=== PATIENT | female | born 1945 | race Two or more races ===

== ENCOUNTER 2019-08-31 14:53 | Emergency (ER) | payer MEDICARE ==
[~2019-08-31] VITALS: Ht 157.5 cm; Wt 60.0 kg
[2019-08-31] MEDS: NITROFURANTOIN 100MG M/M CAPSULE PO SCH ×2 (00:01→19:05)
[2019-08-31] MEDS ORDERED: PROT40 PO (15:07)
[2019-08-31] MEDS ORDERED: LEVO75TA7 PO (15:07)
[2019-08-31] MEDS ORDERED: FOLI-43 PO (15:07)
[2019-08-31] MEDS ORDERED: DIVA250T4 PO (15:07)
[2019-08-31 16:28] LABS: BASOPHILS % 0.6 % (0.0-2.0); EOSINOPHILS % 1.1 % (0.0-5.0); HEMATOCRIT. 46.8 % (36.0-48.0); HEMOGLOBIN. 15.1 g/dL (12.0-16.0); LYMPHOCYTES % 27.1 % (20.0-50.0); MEAN CORPUSCULAR HEMOGLOBIN 26.5 pg (28.0-32.0); MEAN CORPUSCULAR VOLUME 81.7 fL (81.0-99.0); MEAN PLATELET VOLUME 9.3 fl (7.4-10.4); MONOCYTES % 8.4 % (2.0-8.0); NEUTROPHILS % 62.8 % (40.0-76.0); PLATELET 144 x1000/uL (130-400); RED BLOOD CELL COUNT 5.72 mill/uL (4.2-5.4); RED CELL DISTRIBUTION WIDTH 20.6 % (11.6-14.6)
[2019-08-31 16:32] LABS: CHLORIDE 108 mEq/L (98-107)
[2019-08-31 16:36] LABS: ETHANOL BLOOD < 10 mg/dL
[2019-08-31] MEDS ORDERED: LORAZEPAM 1MG TABLET PO ONE (16:45)
[2019-08-31] MEDS ORDERED: OLANZAPINE 5MG TABLET ODT PO ONE (16:45)
[2019-08-31 16:47] LABS: CLARITY URINE CLOUDY (CLEAR); COLOR URINE DK YELLOW (YELLOW); KETONES URINE TRACE (NEGATIVE); LEUKOCYTE ESTERASE URINE 1+ (NEGATIVE); NITRITE URINE NEGATIVE (NEGATIVE); OCCULT BLOOD URINE TRACE (NEGATIVE); PH URINE 6.5 (4.5-8.0); PROTEIN URINE 3+ (NEGATIVE); SPECIFIC GRAVITY URINE 1.026 (1.005-1.030)
[2019-08-31] MEDS ORDERED: POTASSIUM CHLORIDE 20MEQ TABLET SR PO ONE (17:00)
[2019-08-31 17:23] LABS: *AMPHETAMINES SCREEN URINE NEGATIVE (NEGATIVE); *BARBITURATES SCREEN URINE NEGATIVE (NEGATIVE); *BENZODIAZEPINES SCREEN URINE NEGATIVE (NEGATIVE); *COCAINE SCREEN URINE NEGATIVE (NEGATIVE); METHADONE URINE SCREEN NEGATIVE (NEGATIVE)
[2019-08-31 17:24] LABS: CANNABINOID URINE SCREEN NEGATIVE (NEGATIVE); OPIATES URINE SCREEN NEGATIVE (NEGATIVE); PHENCYCLIDINE URINE SCREEN NEGATIVE (NEGATIVE)
[2019-08-31] MEDS ORDERED: NITROFURANTOIN 100MG M/M CAPSULE PO ONE (17:30)
[2019-08-31] MEDS ORDERED: LORAZEPAM 2MG/ML CPJ IM ONE (18:30)
[2019-08-31] MEDS ORDERED: DIPHENHYDRAMINE 50MG/ML VIAL IM ONE (18:30)
[2019-08-31] MEDS ORDERED: SODIUM CHLORIDE 0.9% 500 ML IV ONE (20:53)
[2019-09-01] MEDS: NITROFURANTOIN 100MG M/M CAPSULE PO SCH (08:28)
[2019-09-01 13:30] VITALS: BP 159/94
== END 2019-09-01 13:42 | disposition home or self-care (01) ==
LOC: ER 14:53
DX: F20.9 Schizophrenia, unspecified (principal); I10 Essential (primary) hypertension; N39.0 Urinary tract infection, site not specified; D64.9 Anemia, unspecified; J44.9 Chronic obstructive pulmonary disease, unspecified; F32.9 Major depressive disorder, single episode, unspecified; K21.9 Gastro-esophageal reflux disease without esophagitis; Z95.0 Presence of cardiac pacemaker; Z79.899 Other long term (current) drug therapy
CPT/HCPCS: 36415; 80053; 80305; 80307; 80320; 80329; 81003; 85025; 96372; 99283; J1200; J2060; J7040; G0480

== ENCOUNTER 2019-09-29 12:46 | Inpatient (IN) | payer MEDICARE, MEDICAID ==
[~2019-09-29] VITALS: Ht 157.5 cm; Wt 49.9 kg
[~2019-09-29 12:46] MED LIST: DIVA250T4 PO; FOLI-43 PO; LEVO75TA7 PO; PROT40 PO
[2019-09-29 14:32] LABS: BASOPHILS % 0.3 % (0.0-2.0); EOSINOPHILS % 0.2 % (0.0-5.0); HEMATOCRIT. 24.1 % (36.0-48.0); HEMOGLOBIN. 7.7 g/dL (12.0-16.0); LYMPHOCYTES % 21.9 % (20.0-50.0); MEAN CORPUSCULAR HEMOGLOBIN 25.3 pg (28.0-32.0); MEAN CORPUSCULAR VOLUME 79.5 fL (81.0-99.0); MEAN PLATELET VOLUME 7.9 fl (7.4-10.4); MONOCYTES % 8.8 % (2.0-8.0); NEUTROPHILS % 68.8 % (40.0-76.0); PLATELET 465 x1000/uL (130-400); RED BLOOD CELL COUNT 3.03 mill/uL (4.2-5.4)
[2019-09-29 14:36] LABS: CHLORIDE 100 mEq/L (98-107)
[2019-09-29 14:39] LABS: INR 1.3
[2019-09-29] MEDS ORDERED: LEVOFLOXACIN 500MG PREMIX 100 ML IV ONE (14:45)
[2019-09-29] MEDS ORDERED: SODIUM CHLORIDE 0.9% 500 ML IV ONE (14:47)
[2019-09-29] MEDS ORDERED: POTASSIUM CHLORIDE 20MEQ TABLET SR PO ONE (15:00)
[2019-09-29] MEDS ORDERED: PANTOPRAZOLE SODIUM 40 MG/VIAL IV ONE (15:45)
[2019-09-29 17:11] LABS: CLARITY URINE TURBID (CLEAR); COLOR URINE DARK YELLOW (YELLOW); KETONES URINE 1+ (NEGATIVE); LEUKOCYTE ESTERASE URINE 3+ (NEGATIVE); NITRITE URINE NEGATIVE (NEGATIVE); OCCULT BLOOD URINE 2+ (NEGATIVE); PH URINE 5.5 (4.5-8.0); PROTEIN URINE 2+ (NEGATIVE); SPECIFIC GRAVITY URINE 1.024 (1.005-1.030)
[2019-09-29 21:05] VITALS: BP 92/46
[2019-09-29] MEDS ORDERED: LORAZEPAM 2MG/ML CPJ IV PRN (23:45)
[2019-09-30] VITALS: BP 91/56
[2019-09-30] MEDS ORDERED: DEXT 5%/0.45% NACL 1000ML 1,000 ML IV SCH
[2019-09-30 04:34] VITALS: BP 104/59
[2019-09-30 04:34] LABS: EOSINOPHILS % 0.3 % (0.0-5.0); HEMATOCRIT. 22.6 % (36.0-48.0); HEMOGLOBIN. 7.1 g/dL (12.0-16.0); MEAN CORPUSCULAR HEMOGLOBIN 25.1 pg (28.0-32.0); MEAN CORPUSCULAR VOLUME 79.5 fL (81.0-99.0); MEAN PLATELET VOLUME 7.8 fl (7.4-10.4); PLATELET 412 x1000/uL (130-400); RED BLOOD CELL COUNT 2.84 mill/uL (4.2-5.4); RED CELL DISTRIBUTION WIDTH 21.2 % (11.6-14.6)
[2019-09-30 04:40] LABS: CHLORIDE 104 mEq/L (98-107)
[2019-09-30 04:48] LABS: BASOPHILS % 0.7 % (0.0-2.0); LYMPHOCYTES % 22.6 % (20.0-50.0); MONOCYTES % 11.7 % (2.0-8.0); NEUTROPHILS % 64.7 % (40.0-76.0)
[2019-09-30 04:50] LABS: T4 FREE 1.77 ng/dL (0.76-1.46)
[2019-09-30 08:00] VITALS: BP 99/76
[2019-09-30] MEDS ORDERED: SODIUM CHLORIDE 0.9% 1,000 ML IV ONE (09:00)
[2019-09-30] MEDS ORDERED: PANTOPRAZOLE SODIUM 40 MG/VIAL IV SCH (09:00)
[2019-09-30] MEDS ORDERED: HALOPERIDOL LACTATE 5MG/ML VIAL IM PRN ×2 (09:00→19:00)
[2019-09-30] MEDS: DIVALPROEX SODIUM 250MG DR TABLET PO SCH ×2 (09:38→16:08)
[2019-09-30] MEDS: FOLIC ACID 1MG TABLET PO SCH (09:38)
[2019-09-30] MEDS: DEXT 5%/0.9% NACL 1,000 ML IV SCH ×2 (10:15→21:03)
[2019-09-30 12:00] VITALS: BP 95/62
[2019-09-30] MEDS ORDERED: SODIUM CHLORIDE 0.9% 1,000 ML IV SCH (13:00)
[2019-09-30] MEDS ORDERED: POTASSIUM CHLORIDE 20MEQ TABLET SR PO NR ×2 (13:30→19:00)
[2019-09-30 16:00] VITALS: BP 94/62
[2019-09-30] MEDS ORDERED: LEVOFLOXACIN 500MG PREMIX 100 ML IV SCH (16:00)
[2019-09-30] MEDS ORDERED: SORBITOL 70% SOLN 30ML PO NR ×2 (16:00→20:00)
[2019-09-30 20:00] VITALS: BP 101/60
[2019-09-30] MEDS: PANTOPRAZOLE SODIUM 40 MG/VIAL IV SCH (21:03)
[2019-10-01 00:50] VITALS: BP 98/55
[2019-10-01 04:00] VITALS: BP 93/51
[2019-10-01] MEDS: DEXT 5%/0.9% NACL 1,000 ML IV SCH ×2 (05:11→23:28)
[2019-10-01 07:10] LABS: CHLORIDE 106 mEq/L (98-107)
[2019-10-01 07:16] LABS: TOTAL IRON BINDING CAPACITY 250 ug/dL (250-450)
[2019-10-01 07:21] LABS: FERRITIN 19 ng/mL (10-291)
[2019-10-01 07:22] LABS: FOLIC ACID (FOLATE) SERUM >20 ng/mL ng/mL (>5.38)
[2019-10-01 07:34] LABS: VITAMIN B12 SERUM >2000 pg/mL pg/mL (211-911)
[2019-10-01 08:05] VITALS: BP 101/60
[2019-10-01 08:49] LABS: BASOPHILS % 0.4 % (0.0-2.0); EOSINOPHILS % 0.7 % (0.0-5.0); HEMATOCRIT. 21.6 % (36.0-48.0); LYMPHOCYTES % 34.1 % (20.0-50.0); MEAN CORPUSCULAR HEMOGLOBIN 24.9 pg (28.0-32.0); MEAN CORPUSCULAR VOLUME 79.4 fL (81.0-99.0); MEAN PLATELET VOLUME 8.1 fl (7.4-10.4); MONOCYTES % 12.2 % (2.0-8.0); NEUTROPHILS % 52.6 % (40.0-76.0); PLATELET 392 x1000/uL (130-400); RED BLOOD CELL COUNT 2.71 mill/uL (4.2-5.4); RED CELL DISTRIBUTION WIDTH 20.9 % (11.6-14.6)
[2019-10-01] MEDS: PANTOPRAZOLE SODIUM 40 MG/VIAL IV SCH ×2 (09:00→21:00)
[2019-10-01] MEDS: DIVALPROEX SODIUM 250MG DR TABLET PO SCH (09:00)
[2019-10-01 09:02] LABS: HEMOGLOBIN. 6.8 g/dL (12.0-16.0)
[2019-10-01] MEDS: FOLIC ACID 1MG TABLET PO SCH (10:07)
[2019-10-01] MEDS ORDERED: SORBITOL 70% SOLN 30ML PO SCH (11:00)
[2019-10-01 12:15] VITALS: BP 101/47
[2019-10-01] MEDS: LEVOFLOXACIN 500MG PREMIX 100 ML IV SCH (14:00)
[2019-10-01 16:18] VITALS: BP 94/51
[2019-10-01 20:47] VITALS: BP 107/59
[2019-10-01] MEDS ORDERED: EPOETIN ALFA 10000UNITS/ML VIAL SUBCUT SCH (21:00)
[2019-10-02 00:02] VITALS: BP 90/54
[2019-10-02 04:00] VITALS: BP_SYST 98; BP_SYST 99; BP_DIAS 54; BP_DIAS 56
[2019-10-02] MEDS: DEXT 5%/0.9% NACL 1,000 ML IV SCH (04:52)
[2019-10-02 07:15] LABS: BASOPHILS % 0.7 % (0.0-2.0); EOSINOPHILS % 0.5 % (0.0-5.0); HEMATOCRIT. 21.6 % (36.0-48.0); LYMPHOCYTES % 35.6 % (20.0-50.0); MEAN CORPUSCULAR HEMOGLOBIN 24.6 pg (28.0-32.0); MEAN CORPUSCULAR VOLUME 79.5 fL (81.0-99.0); MEAN PLATELET VOLUME 7.8 fl (7.4-10.4); MONOCYTES % 11.5 % (2.0-8.0); NEUTROPHILS % 51.7 % (40.0-76.0); PLATELET 387 x1000/uL (130-400); RED BLOOD CELL COUNT 2.72 mill/uL (4.2-5.4); RED CELL DISTRIBUTION WIDTH 21.2 % (11.6-14.6)
[2019-10-02 07:33] LABS: HEMOGLOBIN. 6.7 g/dL (12.0-16.0)
[2019-10-02 08:11] LABS: CHLORIDE 105 mEq/L (98-107)
[2019-10-02 08:18] VITALS: BP 141/74
[2019-10-02] MEDS: DIVALPROEX SODIUM 250MG DR TABLET PO SCH ×3 (09:00→17:00)
[2019-10-02] MEDS: FOLIC ACID 1MG TABLET PO SCH (09:23)
[2019-10-02 11:51] VITALS: BP 105/51
[2019-10-02] MEDS ORDERED: FERROUS SULFATE 300MG/5ML UDC PO NR (12:00)
[2019-10-02] MEDS: LEVOFLOXACIN 500MG PREMIX 100 ML IV SCH (14:00)
[2019-10-02 14:39] VITALS: BP 105/51
[2019-10-02 16:03] VITALS: BP 96/44
== END 2019-10-02 17:35 | DRG 377 ==
LOC: ER 12:46 → EDBEDREQTM 15:38 → EDBEDREQ 15:38 → EDBEDREQSVC 15:38 → ENRESERV 20:02 → 6WST 21:09
PROVIDERS: ADMIT Internal Medicine; ATTEND Internal Medicine
DX: K92.1 Melena (principal); E43 Unspecified severe protein-calorie malnutrition; E87.1 Hypo-osmolality and hyponatremia; N39.0 Urinary tract infection, site not specified; D62 Acute posthemorrhagic anemia; E86.0 Dehydration; E87.6 Hypokalemia; F20.9 Schizophrenia, unspecified; I25.10 Atherosclerotic heart disease of native coronary artery without angina pectoris; E03.9 Hypothyroidism, unspecified; I48.91 Unspecified atrial fibrillation; F29 Unspecified psychosis not due to a substance or known physiological condition; J44.9 Chronic obstructive pulmonary disease, unspecified; F32.9 Major depressive disorder, single episode, unspecified; K21.9 Gastro-esophageal reflux disease without esophagitis; Z88.6 Allergy status to analgesic agent; Z95.0 Presence of cardiac pacemaker; Z88.8 Allergy status to other drugs, medicaments and biological substances; Z79.899 Other long term (current) drug therapy; Z68.20 Body mass index [BMI] 20.0-20.9, adult
CPT/HCPCS: 36415; 71045; 80048; 80053; 80076; 80165; 81003; 82607; 82728; 82746; 83540; 83550; 83605; 84132; 84145; 84439; 84443; 84484; 85014; 85018; 85025; 86850; 86870; 86880; 86900; 86901; 86902; 86905; 86906; 86920; 86971; 93005; 96365; 99291; C9113; J0885; J1630; J1956; J7040; J7042